=== PATIENT | female | born 1985 | race Caucasian/White ===

== ENCOUNTER 2020-04-26 13:51 | Outpatient (CLI) | payer OTHER, SELFPAY ==
[2020-04-26 14:59] LABS: SARS-CoV-2 Ag Negative (Negative)
[2020-04-27 18:19] LABS: SARS-CoV-2 RNA PCR Negative
== END 2020-04-26 13:52 | disposition home or self-care (01) ==
LOC: CHSLAB 13:53
PROVIDERS: PCP Family Medicine; Visit Provider Physician Assistant
DX: Z20.822 Contact with and (suspected) exposure to COVID-19 (principal)
CPT/HCPCS: 87426; C9803; U0003; U0005

== ENCOUNTER 2021-11-21 13:25 | Outpatient (CLI) | payer OTHER, SELFPAY ==
[2021-11-21 13:51] LABS: Basophils Absolute Auto 0.07 K/mm3 (0.00-0.10); Basophils Percent Auto 0.6 % (0.0-1.0); Eosinophils Absolute Auto 0.08 K/mm3 (0.02-0.50); Eosinophils Percent Auto 0.7 % (1.0-6.0); Hematocrit 40.5 % (35.0-49.0); Hemoglobin 13.3 g/dL (12.0-15.0); Immature Granulocyte Absolute 0.04 K/mm3 (0.00-0.00); Immature Granulocyte Percent A 0.3 % (0.0-0.0); Lymphocytes Absolute Auto 3.58 K/mm3 (1.10-4.50); Lymphocytes Percent Auto 30.9 % (18.0-42.0); Mean Corpuscular HGB Conc 32.8 g/dL (32.0-36.0); Mean Corpuscular Hemoglobin 30.1 pg (27.0-31.0); Mean Corpuscular Volume 91.6 fL (78.0-102.0); Mean Platelet Volume 10.4 fl (9.2-11.8); Monocytes Absolute Auto 0.71 K/mm3 (0.10-0.90); Monocytes Percent Auto 6.1 % (2.0-11.0); Neutrophils Absolute Auto 7.1 K/mm3 (1.7-7.2); Neutrophils Percent Auto 61.4 % (50.0-70.0); Platelet Count Result 287 K/mm3 (150-420); Red Blood Count 4.42 M/mm3 (4.20-5.40); Red Cell Distribution Width 13.1 % (11.6-14.4); White Blood Count 11.6 K/mm3 (4.8-10.8)
[2021-11-21 14:24] LABS: Alanine Aminotransferase 17 U/L (14-59); Alkaline Phosphatase 83 U/L (46-116); Anion Gap 12 mmol/L (8-16); Aspartate Amino Transferase < 10 U/L (15-37); Bilirubin,Total 0.2 mg/dL (0.00-1.00); Blood Urea Nitrogen 12 mg/dL (7-18); Carbon Dioxide 25 mmol/L (21-32); Chloride 105 mmol/L (98-108); Estimated Glomerular Filt Rate > 60; Glucose 87 mg/dL (70-99); Osmolality Calculated 292 mOsm/kg (285-295); Potassium 4.2 mmol/L (3.5-5.1); Sodium 142 mmol/L (136-145); Total Protein 7.2 g/dL (6.4-8.2)
[2021-11-28 18:18] LABS: Gliadin AB, IgG <1.0 U/mL (<15.0); TTG IGA AB <1.0 U/mL (<15.0)
== END 2021-11-21 13:26 | disposition home or self-care (01) ==
LOC: CHSLAB 13:28
PROVIDERS: PCP Physician Assistant; Visit Provider Family Medicine
DX: L93.2 Other local lupus erythematosus (principal)
CPT/HCPCS: 36415; 80053; 83516; 84443; 85025; 86038; 86255

== ENCOUNTER 2021-12-26 10:21 | Emergency (ER) | payer OTHER, SELFPAY ==
--- NOTE | ~2021-12-26 | CT_ITS ---
EXAMINATION: CT facial bones wo con DATE: 12/26/2021 12:05 INDICATION: Left facial swelling and pain. TECHNIQUE: Computed tomography (CT) of the facial bones and maxillofacial region was performed withou t intravenous contrast. Automated exposure control and iterative reconstruction technique were employ ed. The dose-length product was 256.70 mGy-cm. COMPARISON: None. FINDINGS: There is mild mucosal thickening in the ethmoid sinuses. There is rightward deviation of th e nasal septum. There is a carious lesion of tooth 15. There are carious lesions of teeth 18 and 19 w ith periapical lucencies of tooth 19 with breech of the buccal cortex. There are periapical carious l esions of teeth 30, 31, and 32 with periapical lucencies. IMPRESSION: 1. Dental disease. Reviewed, dictated and finalized at location A. IMPRESSION: 1. Dental disease.
--- NOTE | ~2021-12-26 | CT_ITS ---
EXAMINATION: CT abdomen pelvis wo con DATE: 12/26/2021 12:06 INDICATION: Vomiting and weakness TECHNIQUE: Computed tomography (CT) of the abdomen and pelvis was performed without intravenous contr ast. Automated exposure control and iterative reconstruction technique were employed. The dose-length product was 280.66 mGy-cm. COMPARISON: None FINDINGS: Lung bases are clear. Heart size is normal. No pericardial or pleural effusion. Small sliding-type hi atal hernia. Multiple splenic calcified calcifications and single tiny hepatic calcification consiste nt with old granulomatous disease. Subtle increased attenuation layering dependently in the otherwise normal-appearing gallbladder which could represent sludge or stones. Pancreas, bilateral adrenal gla nds and kidneys are normal. Bowels including appendix are normal. Bladder, uterus and bilateral adnex a are unremarkable. Trace amount of likely physiologic free fluid in the pelvis. No abscess or free i ntraperitoneal gas. No pathologically enlarged abdominal or pelvic lymphadenopathy. Right-sided ostei tis condense and celiac. Transitional lumbarized S1 segment. IMPRESSION: 1. Trace amount of likely physiologic free fluid in the deep pelvis. No acute intra-abdominal/pelvic process. 2. Subtle dependently layering sludge versus gallstones in the otherwise normal gallbladder. 3. Small sliding-type hiatal hernia. Reviewed, dictated and finalized at location A. IMPRESSION: 1. Trace amount of likely physiologic free fluid in the deep pelvis. No acute i ntra-abdominal/pelvic process. 2. Subtle dependently layering sludge versus gallstones in the otherwise normal gallbladder. 3. Small sliding-type hiatal hernia.
[2021-12-26 10:31] VITALS: BP 112/62; PULSE 62; RESP 16; TEMP 36; O2SAT 100
[2021-12-26 11:25] LABS: Basophils Absolute Auto 0.06 K/mm3 (0.00-0.10); Basophils Percent Auto 0.5 % (0.0-1.0); Eosinophils Absolute Auto 0.14 K/mm3 (0.02-0.50); Eosinophils Percent Auto 1.1 % (1.0-6.0); Hematocrit 38.8 % (35.0-49.0); Hemoglobin 12.8 g/dL (12.0-15.0); Immature Granulocyte Absolute 0.05 K/mm3 (0.00-0.00); Immature Granulocyte Percent A 0.4 % (0.0-0.0); Lymphocytes Absolute Auto 3.64 K/mm3 (1.10-4.50); Lymphocytes Percent Auto 28.2 % (18.0-42.0); Mean Corpuscular Hemoglobin 30.3 pg (27.0-31.0); Mean Corpuscular Volume 91.7 fL (78.0-102.0); Mean Platelet Volume 9.8 fl (9.2-11.8); Monocytes Absolute Auto 0.91 K/mm3 (0.10-0.90); Neutrophils Absolute Auto 8.1 K/mm3 (1.7-7.2); Neutrophils Percent Auto 62.8 % (50.0-70.0); Platelet Count Result 329 K/mm3 (150-420); Red Blood Count 4.23 M/mm3 (4.20-5.40); Red Cell Distribution Width 13.7 % (11.6-14.4); White Blood Count 12.9 K/mm3 (4.8-10.8)
[2021-12-26] MEDS: KETOROLAC 30 MG/ML VIAL (*BKC) IM (11:25)
[2021-12-26] MEDS: ONDANSETRON INJ 4 MG/2 ML VIAL IV PUSH (11:30)
[2021-12-26] MEDS: SODIUM CHLORIDE 0.9% IV 1,000 ML 999 ML IV CONT (11:32)
[2021-12-26] MEDS: PANTOPRAZOLE SODIUM IV 40 MG VIAL IV PUSH (11:34)
[2021-12-26 11:40] LABS: Alanine Aminotransferase 48 U/L (14-59); Alkaline Phosphatase 68 U/L (46-116); Anion Gap 10 mmol/L (8-16); Aspartate Amino Transferase 16 U/L (15-37); Bilirubin,Total 0.4 mg/dL (0.00-1.00); Blood Urea Nitrogen 12 mg/dL (7-18); Calcium 8.4 mg/dL (8.5-10.1); Carbon Dioxide 23 mmol/L (21-32); Chloride 103 mmol/L (98-108); Estimated CRCL calculation 66 ml/min; Estimated Glomerular Filt Rate > 60; Glucose 89 mg/dL (70-99); Osmolality Calculated 280 mOsm/kg (285-295); Potassium 3.2 mmol/L (3.5-5.1); Sodium 136 mmol/L (136-145); Total Protein 7.2 g/dL (6.4-8.2)
[2021-12-26 11:41] LABS: SPREG INTERNAL CONTROL Positive; Serum Qual hCG Negative
[2021-12-26 11:45] LABS: Lactic Acid Reflex 1.5 mmol/L (0.4-2.0)
[2021-12-26 11:50] VITALS: BP 108/70; PULSE 60; RESP 16; O2SAT 98
--- NOTE | 2021-12-26 12:46 | PC.NURSE ---
PT UP TO RR WITHOUT DIFFICULTY. MOTHER AT BEDSIDE. NAD NOTED. PT IS AWAITING RESULTS AT THIS TIME. WILL CONTINUE TO MONITOR.
--- NOTE | 2021-12-26 12:57 | ED.DENTAL ---
HPI - Dental/Oral General Chief complaint: Dental/Oral Stated complaint: DENTAL PAIN, VOMITING Time Seen by Provider: 12/26/21 10:25 Source: patient and RN notes reviewed Mode of arrival: ambulatory Limitations: no limitations History of Present Illness HPI Narrative: toothache, abdominal pain. Complaint: tooth pain Onset (ago): day(s) (1) Duration: constant Severity: moderate Severity scale (1-10): 5 Relieving factors: nothing Exacerbating factors: chewing Context: history of dental caries Associated symptoms: other (Pt also had abdominal pain, nausea and vomiting.) Treatment prior to arrival: none Related Data Home Medications Medication Instructions Recorded Confirmed sertraline 100 mg tablet 100 mg PO DAILY 12/26/21 12/26/21 Allergies Allergy/AdvReac Type Severity Reaction Status Date / Time clarithromycin [From Biaxin] Allergy Rash Verified 12/26/21 10:34 Review of Systems Review of Systems: All systems reviewed & are unremarkable except as noted in HPI and below Constitutional: Constitutional: Reports no additional constitutional complaints Eyes: Eyes: Reports no additional eye complaints ENT: Reports system reviewed and no additional complaints, except as documented Comments: toothache Cardiovascular: Cardiovascular: Reports no additional cardiovascular complaints Respiratory: Respiratory: Reports no additional respiratory complaints Gastrointestinal: Gastrointestinal: Reports no additional gastrointestinal complaints and Reports abdominal pain Genitourinary: Genitourinary: Reports no additional female genitourinary complaints Musculoskeletal: Musculoskeletal: Reports no additional musculoskeletal complaints Integumentary/Breasts: Skin/Breast: Reports system reviewed and no additional complaints, except as docu Neurologic: Reports system reviewed and no additional complaints, except as documented Psychiatric: Psychiatric: Reports no additional psychiatric complaints Endocrine: Endocrine: Reports no additional endocrine complaints Hematologic/Lymphatic: Hematologic/Lymphatic: Reports no additional hematologic/lymphatic complaints Allergic/Immunologic: Allergic/Immunologic: Reports no additional allergic/immunologic complaints PMFSH Past Medical History Medical History Abdominal pain Tooth ache Exam Const: General: no acute distress Nutritional Appearance: well nourished Orientation/consciousness: patient oriented x3 Limitations: no limitations HENMT: Head: normal to inspection Ears: external ears normal, TM's normal bilaterally and EAC's normal General nose exam: Normal external nose present and Normal nares present Face and sinus: normal facial exam and sinuses nontender Mouth: Yes Normal oral and palatal mucosa present and Yes moist mucous membranes Teeth and gingiva: abnormal tooth and associated gingiva (multiple carious teeth) Throat: posterior oropharynx normal Eyes: Conjunctivae: conjunctivae normal Pupils: Equal, round and reactive pupils present EOM: EOMs intact bilaterally Neck: Neck: normal visual inspection, no lymphadenopathy and no meningeal signs Chest: Chest palpation & inspection: normal inspection of the chest Resp: Effort & Inspection: normal respiratory effort Auscultation: clear to auscultation bilaterally Cardio: Rate: regular rate Rhythm: regular rhythm GI: GI Palp: Yes Soft to palpation and Yes Tenderness to palpation present (GI) (minimal love-umbilical) Auscultation: normal bowel sounds : General: Yes bladder normal to palpation and Yes no CVA tenderness Bimanual exam- vagina & uterus: bladder normal to palpation Back/Spine/Pelvis: Back: no CVA tenderness Skin: General skin exam: normal color Rashes: no rashes Wounds: no wounds Neuro: General: patient oriented x3, moves all extremities, no meningeal signs, no focal motor deficits and CN's II-XI intact bilaterally Cranial
[2021-12-26 13:00] VITALS: BP 110/70; PULSE 66; RESP 14; O2SAT 99
--- NOTE | 2021-12-26 13:21 | PC.NURSE ---
UPON DC PT STATES ERP HAS NOT REVIEWED TESTING. ERP NOTIFIED, WILL AWAIT ERP TO FOLLOW UP WITH PT.
[2021-12-26] MEDS: POTASSIUM CHLORIDE 20 MEQ TABLET 40 MEQ PO (13:49)
[2021-12-26 14:03] VITALS: BP 106/76; PULSE 62; RESP 16; O2SAT 98
== END 2021-12-26 14:03 | disposition home or self-care (01) ==
PROVIDERS: Emergency Provider Emergency Medicine; PCP Physician Assistant
DX: K02.9 Dental caries, unspecified (principal); K04.7 Periapical abscess without sinus; R10.9 Unspecified abdominal pain; E87.6 Hypokalemia
CPT/HCPCS: 36415; 70486; 74176; 80053; 83605; 84703; 85025; 96365; 96372; 96375; 99284; A9270; C9113; J0696; J1885; J2405; J7030

== ENCOUNTER 2023-08-07 23:40 | Emergency (ER) | payer OTHER, SELFPAY ==
--- NOTE | ~2023-08-07 | XR_ITS ---
AP and lateral views of the left tibia/fibula Clinical History: Pain Findings: No acute fracture or dislocation is seen. Osseous alignment is anatomic. Joint spaces are p reserved without significant erosive or degenerative change. Soft tissues are unremarkable. Impression: Unremarkable left tib-fib radiographs. Reviewed, dictated and finalized at location . Impression: Unremarkable left tib-fib radiographs.
--- NOTE | ~2023-08-07 | XR_ITS ---
Left ankle Technique: AP, oblique, and lateral views were obtained. Clinical History: Pain Findings: No acute fracture or dislocation is seen. Osseous alignment is anatomic. Ankle mortise and other visualized joint spaces are preserved. Soft tissues are otherwise unremarkable. Impression: Unremarkable left ankle. Reviewed, dictated and finalized at location . Impression: Unremarkable left ankle.
--- NOTE | 2023-08-07 23:42 | ED.LOWEXIN ---
HPI - Extremity Injury (Lower) General Chief Complaint: Extremity Injury, Lower Stated Complaint: lower extremity injury Time Seen by Provider: 08/07/23 23:42 Source: patient Mode of arrival: ambulatory History of Present Illness HPI Narrative: 37-year-old female with a history of lupus on intermittent steroids slipped while climbing up the stairs yesterday. subsequently she was able to walk and move around. Today she developed -- worsening left lower leg pain about the medial malleolus. No bruising noted. No other injuries noted. MD complaint: leg injury Onset (ago): day(s) ( One day ago) Type of Injury: blunt Place: home Severity: severe Relieving factors: immobilization Exacerbating factors: movement Context: fall Other symptoms: none Related Data Home Medications Medication Instructions Recorded Confirmed No Home Medications 08/07/23 08/07/23 Allergies Allergy/AdvReac Type Severity Reaction Status Date / Time clarithromycin [From Biaxin] Allergy Rash Verified 08/07/23 23:51 Review of Systems Review of Systems: All systems reviewed & are unremarkable except as noted in HPI and below Constitutional: Constitutional: Reports as per HPI and Reports no additional constitutional complaints Eyes: Eyes: Reports as per HPI and Reports no additional eye complaints ENT: Reports system reviewed and no additional complaints, except as documented and Reports as per HPI Cardiovascular: Cardiovascular: Reports as per HPI and Reports no additional cardiovascular complaints Respiratory: Respiratory: Reports as per HPI and Reports no additional respiratory complaints Gastrointestinal: Gastrointestinal: Reports as per HPI and Reports no additional gastrointestinal complaints Genitourinary: Genitourinary: Reports no additional female genitourinary complaints and Reports as per HPI Musculoskeletal: Musculoskeletal: Reports no additional musculoskeletal complaints and Reports as per HPI Comments: left lower leg pain Integumentary/Breasts: Skin/Breast: Reports system reviewed and no additional complaints, except as docu and Reports as per HPI Neurologic: Reports system reviewed and no additional complaints, except as documented and Reports as per HPI Psychiatric: Psychiatric: Reports no additional psychiatric complaints and Reports as per HPI Endocrine: Endocrine: Reports no additional endocrine complaints and Reports as per HPI Hematologic/Lymphatic: Hematologic/Lymphatic: Reports no additional hematologic/lymphatic complaints and Reports as per HPI Allergic/Immunologic: Allergic/Immunologic: Reports no additional allergic/immunologic complaints and Reports as per HPI [facility] Past Medical History Medical History (Updated 08/08/23 @ 00:27 by Kody Nunez MD) Abdominal pain Lupus Tooth ache Exam Const: General: no acute distress Nutritional Appearance: well nourished Orientation/consciousness: patient oriented x3 Limitations: no limitations HENMT: Head: normal to inspection Ears: external ears normal Face/Nose/Sinus: Normal external nose present Face and sinus: normal facial exam Mouth: Yes Normal oral and palatal mucosa present Throat: posterior oropharynx normal Eyes: Conjunctivae: conjunctivae normal Pupils: Equal, round and reactive pupils present EOM: EOMs intact bilaterally Direct Ophthalmoscopy: no photophobia Neck: Neck: normal visual inspection, no lymphadenopathy and no meningeal signs Chest: Chest palpation & inspection: normal inspection of the chest Resp: Effort & Inspection: normal respiratory effort Auscultation: clear to auscultation bilaterally Cardio: Rate: regular rate Rhythm: regular rhythm GI: GI Palp: Yes Soft to palpation Auscultation: normal bowel sounds : General: Yes no CVA tenderness Skin: General skin exam: normal color Rashes: no rashes Wounds: no wounds Neuro: General: patient oriented x3, moves all extremities, no focal motor deficits an
[2023-08-07 23:43] VITALS: BP 122/83; PULSE 104; RESP 18; TEMP 37.2; O2SAT 98
--- NOTE | 2023-08-07 23:53 | PC.NURSE ---
BSC PLACED BY SERVICE MECHANIC FOR PATIENT TO GIVE URINE SPECIMEN. PATIENT AFFECTED LLE PROPPED UP WITH PILLOW AND ICE BAG APPLIED UPON ARRIVAL. VSS. RN MONITORING. PATIENT AWAITING IMAGING.
[2023-08-08 00:03] LABS: Pregnancy On Board Control Positive; Urine Pregnancy Test Negative
[2023-08-08] MEDS: KETOROLAC 30 MG/ML VIAL (*BKC) IM (00:38)
== END 2023-08-08 00:45 | disposition home or self-care (01) ==
PROVIDERS: Emergency Provider Internal Medicine Critical Care Medicine; PCP Physician Assistant
DX: M79.605 Pain in left leg (principal); W19.XXXA Unspecified fall, initial encounter; M32.9 Systemic lupus erythematosus, unspecified
CPT/HCPCS: 73590; 73610; 81025; 96372; 99284; J1885

== ENCOUNTER 2024-04-29 23:59 | Emergency (ER) | payer OTHER, SELFPAY ==
[2024-04-30 00:01] VITALS: BP 124/83; PULSE 120; RESP 20; TEMP 36.8; O2SAT 98
--- NOTE | 2024-04-30 00:12 | ED_ITS ---
HPI - General Adult General Chief complaint: Unspecified Stated complaint: nausea, weakness Time Seen by Provider: 04/30/24 00:12 Source: patient Mode of arrival: ambulatory Limitations: no limitations History of Present Illness HPI narrative: 38-year-old female with a history of lupus inhaled cocaine around 8:00 p.m.. Subsequently the patient has been having -- shaking. patient feels tremulous -- nausea without any vomiting. No abdominal pain. No diarrhea -- generalized weakness. No focal deficits noted. denied headache. No chest pain or shortness of breath Patient denied being . Patient has smoked cocaine in the past but has not had these above symptoms. Onset (ago): hour(s) ( Four hours) Relieving factors: none Exacerbating factors: none Associated symptoms: malaise, nausea/vomiting and weakness Treatments prior to arrival: none Related Data Home Medications ?Medication ?Instructions ?Recorded ?Confirmed ?Last Taken ?Type No Home Medications 08/07/23 08/07/23 Unknown History Allergies Allergy/AdvReac Type Severity Reaction Status Date / Time clarithromycin (From Biaxin) Allergy Rash Verified 08/07/23 23:51 Review of Systems 2 Review of Systems: All systems reviewed & are unremarkable except as noted in HPI and below Constitutional: Constitutional: Reports as per HPI and Reports no additional constitutional complaints Eyes: Eyes: Reports as per HPI and Reports no additional eye complaints ENT: Reports system reviewed and no additional complaints, except as documented and Reports as per HPI Cardiovascular: Cardiovascular: Reports as per HPI and Reports no additional cardiovascular complaints Respiratory: Respiratory: Reports as per HPI and Reports no additional respiratory complaints Gastrointestinal: Gastrointestinal: Reports as per HPI and Reports no additional gastrointestinal complaints Genitourinary: Genitourinary: Reports no additional female genitourinary complaints and Reports as per HPI Musculoskeletal: Musculoskeletal: Reports no additional musculoskeletal complaints and Reports as per HPI Integumentary/Breasts: Skin/Breast: Reports system reviewed and no additional complaints, except as docu and Reports as per HPI Neurologic: Reports system reviewed and no additional complaints, except as documented, Reports as per HPI and Reports weakness Comments: no focal deficits noted. Psychiatric: Psychiatric: Reports no additional psychiatric complaints, Reports as per HPI and Reports anxiety Endocrine: Endocrine: Reports no additional endocrine complaints and Reports as per HPI Hematologic/Lymphatic: Hematologic/Lymphatic: Reports no additional hematologic/lymphatic complaints and Reports as per HPI Allergic/Immunologic: Allergic/Immunologic: Reports no additional allergic/immunologic complaints and Reports as per [facility] Past Medical History Medical History (Updated 04/30/24 @ 01:24 by Kody Nunez MD) Lupus Abdominal pain Tooth ache Social History Social History (Updated 04/30/24 @ 00:26 by Kody Nunez MD) Social History: Cocaine use Exam 2 Narrative: pulse rate of 120. Blood pressure 124/83 respirations of 20 oxygen saturation of 98% on room air Const: General: cooperative and healthy appearing Nutritional Appearance: w ell nourished Orientation/consciousness: oriented to person, oriented to place and oriented to time Limitations: no limitations HENMT: Head: normal to inspection, No palpable skull fracture present, normocephalic and atraumatic Ears: hearing grossly normal bilaterally and external ears normal Face/Nose/Sinus: Normal external nose present and Normal nares present Face and sinus: normal facial exam, sinuses nontender and face symmetric Mouth: Yes Normal oral and palatal mucosa present, Yes lip normal and Yes tongue normal Throat: posterior oropharynx normal Eyes: General: appearance normal, both eyes and all related structures V isual Petty: normal visual petty by confrontation Alignment and Position: a lignment normal Periorbital: periorbital findings normal Pupils: Equal, round and reactive pupils present Neck: Neck: normal visual inspection, full ROM, no lymphadenopathy and no meningeal signs Chest: Chest palpation & inspection: normal inspection of the chest Resp: Effort & Inspection: normal respiratory effort Auscultation: clear to auscultation bilaterally Cardio: Rate: tachycardic Rhythm: regular rhythm Heart sounds: S1 normal heart sound present and S2 normal heart sound present GI: Inspection: normal to inspection Auscultation: normal bowel sounds O ther: no tenderness/rigidity / rebound. : General: Yes no CVA tenderness Back/Spine/Pelvis: Back: no CVA tenderness Skin: General skin exam: normal color and no rashes or lesions noted Neuro: General: oriented to person, oriented to place and oriented to time Pupils: Normal pupillary reactivity/response: bilateral Extrem: General: normal to inspection, full ROM, capillary refill normal and normal exam except as noted Psych: Appearance: grossly normal Mental Status: mental status grossly normal Speech and movement: Normal speech and movement present and Clear speech present Affect: Anxious affect present Thought process: Normal thought process present Insight: Good insight present (Psych) Judgement: Jose munoz judgement present (Psych) Course Course Emergency Course: Cocaine abuse- EKG revealed normal sinus rhythm without any ST elevation. Patient had normal cardiacs. anxiety-- significant improvement after the Ativan. elevated lactate-- patient does not have any obvious focus of infection. Patient is afebrile. No dysuria or hematuria. No cough sputum production Vital Signs Vital signs: Vital Signs Temperature 36.8 C 04/30/24 00:01 Pulse Rate 120 H 04/30/24 00:01 Respiratory Rate 20 04/30/24 00:01 Blood Pressure 124/83 04/30/24 00:01 Pulse Oximetry 98 04/30/24 00:01 Oxygen Delivery Room Air 04/30/24 00:01 Temperature 36.8 C 04/30/24 00:01 Pulse Rate 69 04/30/24 01:16 Respiratory Rate 18 04/30/24 01:16 Blood Pressure 112/79 04/30/24 01:16 Pulse Oximetry 99 04/30/24 01:16 Oxygen Delivery Room Air 04/30/24 00:01 Medical Decision Making [facility] Narrative Medical decision making narrative: Cocaine abuse anxiety Differential Diagnosis Differential Diagnosis: myocardial infarction, panic attacks Vital Signs Vital Signs: Vital Signs Temperature 36.8 C 04/30/24 00:01 Pulse Rate 120 H 04/30/24 00:01 Respiratory Rate 20 04/30/24 00:01 Blood Pressure 124/83 04/30/24 00:01 Pulse Oximetry 98 04/30/24 00:01 Oxygen Delivery Room Air 04/30/24 00:01 Temperature 36.8 C 04/30/24 00:01 Pulse Rate 69 04/30/24 01:16 Respiratory Rate 18 04/30/24 01:16 Blood Pressure 112/79 04/30/24 01:16 Pulse Oximetry 99 04/30/24 01:16 Oxygen Delivery Room Air 04/30/24 00:01 Lab Data 04/30/24 00:37 04/30/24 00:37 Labs: Lab Results 04/30/24 Range/Units 00:37 WBC 10.9 H (4.8-10.8) K/mm3 RBC 4.67 (4.20-5.40) M/mm3 Hgb 13.8 (12.0-15.0) g/dL Hct 41.7 (35.0-49.0) % MCV 89.3 (78.0-102.0) fL MCH 29.6 (27.0-31.0) pg MCHC 33.1 (32-36) g/dL RDW 12.6 (11.6-14.4) % Plt Count 290 (150-420) K/mm3 MPV 9.6 (9.2-11.8) fl Immature Gran % (Auto) 0.9 H (0.0-0.0) % Neut % (Auto) 68.6 (50.0-70.0) % Lymph % (Auto) 23.7 (18.0-42.0) % [place] % (Auto) 5.5 (2.0-11.0) % Eos % (Auto) 0.5 L (1.0-6.0) % Baso % (Auto) 0.8 (0.0-1.0) % Lymph # (Auto) 2.59 (1.10-4.50) K/mm3 [place] # (Auto) 0.60 (0.10-0.90) K/mm3 Eos # (Auto) 0.06 (0.02-0.50) K/mm3 Baso # (Auto) 0.09 (0.00-0.10) K/mm3 Abs Immat Gran (auto) 0.10 H (0.00-0.00) K/mm3 Absolute Neuts (auto) 7.47 H (1.70-7.20) K/mm3 Absolute Nucleated RBC 0.00 (0.00-0.00) K/mm3 Nucleated RBC % 0.0 (0-0.0) % Sodium 141 (136-145) mmol/L Potassium 4.1 (3.5-5.1) mmol/L Chloride 103 (98-108) mmol/L Carbon Dioxide 25 (21-32) mmol/L Anion Gap 13 H (4-12) mmol/L BUN 8 (7-18) mg/dL Creatinine 0.86 (0.55-1.02) mg/dL Estim Creat Clear Calc 61 ml/min Estimated GFR > 60 (59 - ) Glucose 97 (70-99) mg/dL Calculated Osmolality 290 (285-295) mOsm/kg Lactic Acid 2.6 H (0.4-2.0) mmol/L Calcium 9.1 (8.5-10.1) mg/dL Total Bilirubin 0.3 (0.00-1.00) mg/dL AST 11 L (15-37) U/L ALT 19 (14-59) U/L Alkaline Phosphatase 104 (46-116) U/L Total Creatine Kinase 63 (26-192) U/L Troponin I < 4.0 (0.00-60.4) ng/L Total Protein 7.9 (6.4-8.2) g/dL Albumin 4.1 (3.4-5.0) g/dL Lipase 29 (16-77) U/L Urine Test Negative Urine Opiates Screen Negative (Negative) Urine Methadone Screen Negative (Negative) Ur Barbiturates Screen Negative (Negative) Ur Phencyclidine Scrn Negative (Negative) Ur Amphetamine Screen Negative (Negative) U Benzodiazepines Scrn Negative (Negative) Urine Cocaine Screen Positive A (Negative) U Cannabinoids Screen Positive A (Negative) ECG Data EKG #1: ECG completion date: 04/30/24 ECG completion time: 00:09 Interpretation: normal sinus rhythm. Normal axis. No ST elevation. Discharge Plan Discharge Clinical Impression: Cocaine abuse, Anxiety Patient Disposition: Home, Self-Care Condition: Stable Instructions: Antibiotic Form, Polysubstance Use Disorder (ED) Patient Language: [place] Prescriptions: No Action No Home Medications Follow-up/Referrals: UNKNOWN,DOCTOR [Primary Care Provider] - Time of Disposition: 01:24
--- NOTE | 2024-04-30 00:16 | PC.NURSE ---
DR GARCIA AT THE BEDSIDE
--- NOTE | 2024-04-30 00:18 | ECG_ITS ---
Test Date: 2024-04-30 00:09:13 Measurements Intervals [place] Rate: 82 P: 61 OR: 128 QRS: 50 QRSD: 98 T: 55 QT: 365 QTc: 429 Interpretive Statements SINUS RHYTHM WITH OCCASIONAL VENTRICULAR PREMATURE COMPLEXES No previous ECG available for comparison Electronically Signed On 04-30-2024 09:22:10 [employer] by Eric Guerin M.D.
[2024-04-30] MEDS: LORazepam (*CRX) 1 MG TABLET 2 MG PO (00:37)
[2024-04-30 00:40] VITALS: BP 117/66; PULSE 82; RESP 16; O2SAT 98
[2024-04-30 00:46] VITALS: BP 113/60; PULSE 70; RESP 20; O2SAT 99
[2024-04-30 00:47] LABS: Pregnancy On Board Control Positive; Urine Pregnancy Test Negative
[2024-04-30 00:49] LABS: Basophils Absolute Auto 0.09 K/mm3 (0.00-0.10); Basophils Percent Auto 0.8 % (0.0-1.0); Eosinophils Absolute Auto 0.06 K/mm3 (0.02-0.50); Eosinophils Percent Auto 0.5 % (1.0-6.0); Hematocrit 41.7 % (35.0-49.0); Hemoglobin 13.8 g/dL (12.0-15.0); Immature Granulocyte Percent A 0.9 % (0.0-0.0); Lymphocytes Absolute Auto 2.59 K/mm3 (1.10-4.50); Lymphocytes Percent Auto 23.7 % (18.0-42.0); Mean Corpuscular HGB Conc 33.1 g/dL (32-36); Mean Corpuscular Hemoglobin 29.6 pg (27.0-31.0); Mean Corpuscular Volume 89.3 fL (78.0-102.0); Mean Platelet Volume 9.6 fl (9.2-11.8); Monocytes Percent Auto 5.5 % (2.0-11.0); Neutrophils Absolute Auto 7.47 K/mm3 (1.70-7.20); Neutrophils Percent Auto 68.6 % (50.0-70.0); Platelet Count Result 290 K/mm3 (150-420); Red Blood Count 4.67 M/mm3 (4.20-5.40); Red Cell Distribution Width 12.6 % (11.6-14.4); White Blood Count 10.9 K/mm3 (4.8-10.8)
[2024-04-30 00:50] LABS: Amphetamine Screen Urine Negative (Negative); Barbiturate Screen Urine Negative (Negative); Benzodiazepines Screen Urine Negative (Negative); Cannabinoid Screen Urine Positive (Negative); Cocaine Screen Urine Positive (Negative); Methadone Screen Urine Negative (Negative); Opiate Screen Urine Negative (Negative); Phencyclidine Screen Urine Negative (Negative)
[2024-04-30 00:59] LABS: Lactic Acid Reflex 2.6 mmol/L (0.4-2.0)
[2024-04-30 01:01] VITALS: BP 103/65; PULSE 69; RESP 23; O2SAT 99
[2024-04-30 01:09] LABS: Alanine Aminotransferase 19 U/L (14-59); Albumin Level 4.1 g/dL (3.4-5.0); Alkaline Phosphatase 104 U/L (46-116); Anion Gap 13 mmol/L (4-12); Aspartate Amino Transferase 11 U/L (15-37); Bilirubin,Total 0.3 mg/dL (0.00-1.00); Blood Urea Nitrogen 8 mg/dL (7-18); Calcium 9.1 mg/dL (8.5-10.1); Carbon Dioxide 25 mmol/L (21-32); Chloride 103 mmol/L (98-108); Creatine Kinase 63 U/L (26-192); Estimated CRCL calculation 61 ml/min; Estimated Glomerular Filt Rate > 60; Glucose 97 mg/dL (70-99); Osmolality Calculated 290 mOsm/kg (285-295); Potassium 4.1 mmol/L (3.5-5.1); Sodium 141 mmol/L (136-145); Total Protein 7.9 g/dL (6.4-8.2)
[2024-04-30 01:12] LABS: Lipase 29 U/L (16-77); Troponin I < 4.0 ng/L (0.00-60.4)
[2024-04-30 01:16] VITALS: BP 112/79; PULSE 69; RESP 18; O2SAT 99
--- NOTE | 2024-04-30 01:21 | PC.NURSE ---
PATIENT RESTING QUIETLY ON STRETCHER. NO NEEDS VOICED
--- NOTE | 2024-04-30 01:22 | PC.NURSE ---
DR GARCIA AT THE BEDSIDE
[2024-04-30 03:38] LABS: Reflex Lactic Acid Yes or No Add Lactic
== END 2024-04-30 01:33 | disposition home or self-care (01) ==
PROVIDERS: Emergency Provider Internal Medicine Critical Care Medicine
DX: F14.10 Cocaine abuse, uncomplicated (principal); F41.9 Anxiety disorder, unspecified
CPT/HCPCS: 36415; 80053; 80307; 81025; 82550; 83605; 83690; 84484; 85025; 93005; 99284; A9270

== ENCOUNTER 2024-12-27 09:20 | Emergency (ER) | payer OTHER, SELFPAY ==
[2024-12-27 09:21] VITALS: BP 132/84; PULSE 79; RESP 20; TEMP 36.6; O2SAT 100
--- NOTE | 2024-12-27 09:34 | ED_ITS ---
HPI - Anxiety General Chief Complaint: Anxiety Stated Complaint: dizzy Time Seen by Provider: 12/27/24 09:25 Source: patient Mode of arrival: ambulatory Limitations: no limitations History of Present Illness HPI narrative: 39-year-old female with a history of anxiety presents to the ED with -- severe anxiety. She is unable to sleep. She feels restless and anxious. When she attempts to sleep, she gets abruptly with anxiety. No chest pain or shortness of breath. No focal neuro deficits. Prior history of anxiety and substance abuse. The symptoms started after she noted an SI sedation attempt of a polidarleneianMD complaint: anxiety and heart racing Onset (ago): day(s) ( 12 hours) Symptoms: dyspnea and palpitations Severity: moderate Quality: constant Place: home History of similar episodes: Yes Provoking factors: other ( recent assassination attempt of a politician) Relieving factors: nothing Exacerbating factors: nothing Associated symptoms: denies other symptoms, palpitations and other ( anxiety) Related Data Allergies Allergy/AdvReac Type Severity Reaction Status Date / Time clarithromycin (From Biaxin) Allergy Rash Verified 12/27/24 09:24 Review of Systems Review of Systems: All systems reviewed & are unremarkable except as noted in HPI and below Constitutional: Constitutional: Reports as per HPI and Reports no additional constitutional complaints Eyes: Eyes: Reports as per HPI and Reports no additional eye complaints ENT: Reports system reviewed and no additional complaints, except as documented and Reports as per HPI Cardiovascular: Cardiovascular: Reports as per HPI and Reports no additional cardiovascular complaints Respiratory: Respiratory: Reports as per HPI and Reports no additional respiratory complaints Gastrointestinal: Gastrointestinal: Reports as per HPI and Reports no additional gastrointestinal complaints Genitourinary: Genitourinary: Reports no additional female genitourinary complaints and Reports as per HPI Musculoskeletal: Musculoskeletal: Reports no additional musculoskeletal complaints and Reports as per HPI Integumentary/Breasts: Skin/Breast: Reports system reviewed and no additional complaints, except as docu and Reports as per HPI Neurologic: Reports system reviewed and no additional complaints, except as documented and Reports as per HPI Psychiatric: Psychiatric: Reports no additional psychiatric complaints, Reports as per HPI and Reports anxiety Endocrine: Endocrine: Reports no additional endocrine complaints and Reports as per HPI Hematologic/Lymphatic: Hematologic/Lymphatic: Reports no additional hematologic/lymphatic complaints and Reports as per HPI Allergic/Immunologic: Allergic/Immunologic: Reports no additional allergic/immunologic complaints and Reports as per [facility] Past Medical History Medical History Lupus Abdominal pain Tooth ache Social History Social History Social History: Cocaine use Substance use type: marijuana Exam Narrative: vitals are stable patient is anxious and crying Const: Orientation/consciousness: patient oriented x3 Limitations: no limitations HENMT: Head: normal to inspection Ears: external ears normal Face/Nose/Sinus: Normal external nose present Face and sinus: normal facial exam Mouth: Yes Normal oral and palatal mucosa present Throat: posterior oropharynx normal Eyes: Conjunctivae: conjunctivae normal Pupils: Equal, round and reactive pupils present EOM: EOMs intact bilaterally Direct Ophthalmoscopy: no photophobia Neck: Neck: normal visual inspection, no lymphadenopathy and no meningeal signs Chest: Chest palpation & inspection: normal inspection of the chest Resp: Effort & Inspection: normal respiratory effort Auscultation: clear to auscultation bilaterally Cardio: Rate: regular rate Rhythm: regular rhythm GI: GI Palp: Yes Soft to palpation Auscultation: normal bowel sounds : General: Yes no CVA tenderness Back/Spine/Pelvis: Back: no CVA tenderness Skin: General skin exam: normal color Rashes: no rashes Wounds: no wounds Neuro: General: patient oriented x3, moves all extremities, no meningeal signs, no focal motor deficits and CN's II-XI intact bilaterally Cranial nerves: Yes Nystagmus not present Speech: normal speech Extrem: General: normal to inspection and no clubbing, cyanosis or edema Psych: Affect: Anxious affect present Course Course Emergency Course: panic attack- improved with Xanax Vital Signs Vital signs: Vital Signs Temperature 36.6 C 12/27/24 09:21 Pulse Rate 79 12/27/24 09:21 Respiratory Rate 20 12/27/24 09:21 Blood Pressure 132/84 12/27/24 09:21 Pulse Oximetry 100 12/27/24 09:21 Oxygen Delivery Room Air 12/27/24 09:21 Temperature 36.6 C 12/27/24 09:21 Pulse Rate 79 12/27/24 09:21 Respiratory Rate 20 12/27/24 09:21 Blood Pressure 132/84 12/27/24 09:21 Pulse Oximetry 100 12/27/24 09:21 Oxygen Delivery Room Air 12/27/24 09:21 MDM - Anxiety MDM Narrative Medical decision making narrative: panic attack Differential Diagnosis Differential diagnosis: Likely acute anxiety Discharge Plan Discharge Clinical Impression: Panic attack Patient Disposition: Home Condition: Stable Instructions: Antibiotic Form, Panic Attack (ED) Patient Language: Yoruba Prescriptions: New alprazolam [Xanax] 0.25 mg tablet 0.25 mg PO BID PRN (Reason: anxiety) Qty: 7 0RF Follow-up/Referrals: Tony,CAROL Hdez [Primary Care Provider] Time of Disposition: 11:07
[2024-12-27] MEDS: ALPRAZolam (*CRX) 0.5 MG TABLET PO (09:44)
--- NOTE | 2024-12-27 10:41 | PC.NURSE ---
Patient reports she feels better since medication administration.
[2024-12-27 11:12] VITALS: BP 109/69; PULSE 66; RESP 16; TEMP 36.6; O2SAT 100
[2024-12-27 11:18] VITALS: BP 109/69; PULSE 66; RESP 16; TEMP 36.6; O2SAT 100
== END 2024-12-27 11:18 | disposition home or self-care (01) ==
PROVIDERS: Emergency Provider Internal Medicine Critical Care Medicine; PCP Physician Assistant
DX: F41.0 Panic disorder [episodic paroxysmal anxiety] (principal)
CPT/HCPCS: 99283; A9270

== ENCOUNTER 2025-01-07 09:07 | Emergency (ER) | payer OTHER, SELFPAY ==
[2025-01-07] VITALS (7 sets, daily range): BP systolic 99–146; BP diastolic 63–82; PULSE 73–82; RESP 20; TEMP 36.4; O2SAT 98–100
--- NOTE | 2025-01-07 09:11 | ECG_ITS ---
Test Date: 2025-01-07 09:25:55 Measurements Intervals [place] Rate: 66 P: 39 VA: 107 QRS: 60 QRSD: 93 T: 37 QT: 405 QTc: 425 Interpretive Statements SINUS RHYTHM WITH SHORT VA INTERVAL WITH OCCASIONAL VENTRICULAR PREMATURE COMPLEXES BORDERLINE ECG Compared to ECG 04/30/2024 00:09:13 NO SIGNIFICANT CHANGE Electronically Signed On 01-07-2025 16:35:59 CDT by Steve Damon M.D.
[2025-01-07] MEDS: ALPRAZolam (*CRX) 0.5 MG TABLET PO (09:17)
[2025-01-07 09:32] LABS: Hematocrit 42.6 % (35.0-49.0); Hemoglobin 14.3 g/dL (12.0-15.0); Immature Granulocyte Percent A 0.3 % (0.0-0.0); Lymphocytes Absolute Auto 1.52 K/mm3 (1.10-4.50); Mean Corpuscular HGB Conc 33.6 g/dL (32-36); Mean Corpuscular Hemoglobin 29.9 pg (27.0-31.0); Mean Corpuscular Volume 88.9 fL (78.0-102.0); Nucleated Red Blood Cells Absolute Auto 0.00 K/mm3 (0.00-0.00); Nucleated Red Blood Cells Perc 0.0 % (0-0.0); Platelet Count Result 304 K/mm3 (150-420); Red Blood Count 4.79 M/mm3 (4.20-5.40); White Blood Count 10.8 K/mm3 (4.8-10.8)
[2025-01-07 09:44] LABS: Alanine Aminotransferase 16 U/L (6-35); Albumin Level 4.7 g/dL (3.5-5.1); Alkaline Phosphatase 82 U/L (38-126); Anion Gap 13 mmol/L (4-12); Aspartate Amino Transferase 24 U/L (14-36); Bilirubin,Total 0.6 mg/dL (0.2-1.3); Blood Urea Nitrogen 7 mg/dL (7-17); Calcium 9.9 mg/dL (8.4-10.2); Carbon Dioxide 17 mmol/L (22-30); Chloride 112 mmol/L (98-107); Estimated CRCL calculation 65 ml/min; Estimated Glomerular Filt Rate > 60; Glucose 111 mg/dL (65-110); Osmolality Calculated 293 mOsm/kg (285-295); Potassium 3.9 mmol/L (3.4-5.0); Sodium 142 mmol/L (137-145); Total Protein 9.4 g/dL (6.3-8.2)
[2025-01-07 09:55] LABS: Troponin I < 0.012 ng/mL (0.000-0.034)
--- NOTE | 2025-01-07 09:58 | ED_ITS ---
HPI - Anxiety General Chief Complaint: Anxiety Stated Complaint: anxiety Source: patient and family Mode of arrival: ambulatory Limitations: no limitations History of Present Illness HPI narrative: this is a 39-year-old female with history of anxiety and depression woke up around 2 in the morning with a presumed panic attack she felt shortness breath and some dizziness with no fever chills no chest pain no abdominal pain no dysuria no flank pain or hematuria no headache no blurry vision no neurological deficits. complaint: anxiety and shortness of breath Onset (ago): hour(s) Severity: moderate Quality: constant Place: home History of similar episodes: Yes Provoking factors: emotional stress Related Data Home Medications ?Medication ?Instructions ?Recorded ?Confirmed ?Last Taken ?Type hydroxychloroquine 200 mg tablet 200 mg PO DAILY 01/0701/07/25 Unknown History Allergies Allergy/AdvReac Type Severity Reaction Status Date / Time clarithromycin (From Biaxin) Allergy Rash Verified 01/07/25 09:13 Review of Systems 2 Review of Systems: All systems reviewed & are unremarkable except as noted in HPI and below PMFSH Past Medical History Medical History Lupus Abdominal pain Tooth ache Social History Social History Social History: Cocaine use Substance use type: marijuana Exam 2 Const: General: healthy appearing and no acute distress Nutritional Appearance: well nourished Orientation/consciousness: patient oriented x3 Limitations: no limitations Neck: Neck: normal visual inspection, no lymphadenopathy and no meningeal signs Chest: Chest palpation & inspection: normal inspection of the chest Resp: Effort & Inspection: normal respiratory effort Auscultation: clear to auscultation bilaterally Cardio: Rate: regular rate Rhythm: regular rhythm GI: GI Palp: Yes Soft to palpation Auscultation: normal bowel sounds Back/Spine/Pelvis: Back: no CVA tenderness Skin: General skin exam: normal color Rashes: no rashes Neuro: General: patient oriented x3, moves all extremities, no meningeal signs and no focal motor deficits Speech: normal speech Gait exam (Neuro): N ormal gait present Extrem: General: normal to inspection, no clubbing, cyanosis or edema and no pedal edema Psych: Affect: Anxious affect present Course Course Emergency Course: Patient had EKG which shows occasional PVCs otherwise normal sinus rhythm, D- dimer troponin were negative the rest of her blood work was within normal limits. Vital signs are stable with O2 sats of 99% on room air heart rate of 73 respiratory rate of 20, patient did receive 0.5 Xanax which after reassessment symptoms have improved. Vital Signs Vital signs: Vital Signs Temperature 36.4 C 01/07/25 09:08 Pulse Rate 82 01/07/25 09:08 Respiratory Rate 20 01/07/25 09:08 Blood Pressure 146/63 H 01/07/25 09:08 Pulse Oximetry 99 01/07/25 09:08 Oxygen Delivery Room Air 01/07/25 09:08 Temperature 36.4 C 01/07/25 09:08 Pulse Rate 73 01/07/25 09:15 Respiratory Rate 20 01/07/25 09:15 Blood Pressure 116/82 01/07/25 09:15 Pulse Oximetry 99 01/07/25 09:31 Oxygen Delivery Room Air 01/07/25 09:31 MDM - Anxiety Lab Data 01/07/25 09:26 01/07/25 09:26 Labs: Lab Results 01/07/25 Range/Units 09:26 WBC 10.8 (4.8-10.8) K/mm3 RBC 4.79 (4.20-5.40) M/mm3 Hgb 14.3 (12.0-15.0) g/dL Hct 42.6 (35.0-49.0) % MCV 88.9 (78.0-102.0) fL MCH 29.9 (27.0-31.0) pg MCHC 33.6 (32-36) g/dL RDW 12.5 (11.6-14.4) % Plt Count 304 (150-420) K/mm3 MPV 10.1 (9.2-11.8) fl Immature Gran % (Auto) 0.3 H (0.0-0.0) % Neut % (Auto) 77.6 H (50.0-70.0) % Lymph % (Auto) 14.0 L (18.0-42.0) % [place] % (Auto) 6.9 (2.0-11.0) % Eos % (Auto) 0.5 L (1.0-6.0) % Baso % (Auto) 0.7 (0.0-1.0) % Lymph # (Auto) 1.52 (1.10-4.50) K/mm3 [place] # (Auto) 0.75 (0.10-0.90) K/mm3 Eos # (Auto) 0.05 (0.02-0.50) K/mm3 Baso # (Auto) 0.08 (0.00-0.10) K/mm3 Abs Immat Gran (auto) 0.03 H (0.00-0.00) K/mm3 Absolute Neuts (auto) 8.41 H (1.70-7.20) K/mm3 Absolute Nucleated RBC 0.00 (0.00-0.00) K/mm3 Nucleated RBC % 0.0 (0-0.0) % D-Dimer 0.21 (0.19-0.50) mg/L Sodium 142 (137-145) mmol/L Potassium 3.9 (3.4-5.0) mmol/L Chloride 112 H (98-107) mmol/L Carbon Dioxide 17 L (22-30) mmol/L Anion Gap 13 H (4-12) mmol/L BUN 7 (7-17) mg/dL Creatinine 0.80 (0.7-1.0) mg/dL Estim Creat Clear Calc 65 ml/min Estimated GFR > 60 (59 - ) Glucose 111 H (65-110) mg/dL Calculated Osmolality 293 (285-295) mOsm/kg Calcium 9.9 (8.4-10.2) mg/dL Total Bilirubin 0.6 (0.2-1.3) mg/dL AST 24 (14-36) U/L ALT 16 (6-35) U/L Alkaline Phosphatase 82 (38-126) U/L Troponin I < 0.012 (0.000-0.034) ng/mL Total Protein 9.4 H (6.3-8.2) g/dL Albumin 4.7 (3.5-5.1) g/dL Critical Care Time Critical Care Time Critical Care Time: No Discharge Plan Discharge Clinical Impression: Panic disorder, Acute anxiety Patient Disposition: Home Condition: Stable Instructions: Antibiotic Form, Panic Disorder (ED), Anxiety (ED) Additional Instructions: Advised patient to take medication as prescribed and to follow with primary care physician within next 3 to 5 days for further evaluation and treatment. Patient Language: Italian Prescriptions: New alprazolam [Xanax] 0.5 mg tablet 0.5 mg PO BID PRN (Reason: anxiety) Qty: 20 0RF No Action alprazolam [Xanax] 0.25 mg tablet 0.25 mg PO BID PRN (Reason: anxiety) Qty: 7 0RF hydroxychloroquine 200 mg tablet 200 mg PO DAILY Follow-up/Referrals: Tony,CAROL Hdez [Primary Care Provider] Time of Disposition: 10:02
== END 2025-01-07 10:13 | disposition home or self-care (01) ==
PROVIDERS: Emergency Provider Emergency Medicine; PCP Physician Assistant
DX: F41.0 Panic disorder [episodic paroxysmal anxiety] (principal); F41.9 Anxiety disorder, unspecified; F32.A Depression, unspecified; Z79.899 Other long term (current) drug therapy
CPT/HCPCS: 36415; 80053; 84484; 85025; 85380; 93005; 99284; A9270